=== PATIENT | female | born 1990 | race Caucasian/White ===

== ENCOUNTER 2016-09-06 11:14 | Inpatient (IN) | payer MEDICAID ==
[~2016-09-06] VITALS: Ht 152.4 cm; Wt 72.9 kg
[2016-09-06 12:34] VITALS: BP 122/70; RESP 16; Ht 152.4 cm; Wt 72.9 kg
[2016-09-06] MEDS ORDERED: PREN1TAB17 PO (12:36)
[2016-09-06] MEDS ORDERED: IRON1TAB78 PO (12:36)
[2016-09-06] MEDS ORDERED: METHYLERGONOVINE 0.2 MG INJ IM PRN ×2 (13:00→23:30)
[2016-09-06] MEDS ORDERED: MISOPROSTOL 200 MCG TAB PR PRN ×2 (13:00→23:30)
[2016-09-06] MEDS ORDERED: MINERAL OIL LIGHT 10 ML VIAL TOP ONE (13:00)
[2016-09-06] MEDS ORDERED: OXYTOCIN 30 UNITS/LR 500 ML IV SCH ×3 (13:00)
[2016-09-06] MEDS ORDERED: CARBOPROST 250 MCG INJ IM PRN ×2 (13:00→23:30)
[2016-09-06] MEDS ORDERED: LIDOCAINE 1% (MPF) 30 ML INJ INJ PRN (13:00)
[2016-09-06] MEDS ORDERED: OXYTOCIN 30 UNITS/LR 500 ML IV PRN ×2 (13:00→23:30)
[2016-09-06] MEDS ORDERED: BUTORPHANOL 2 MG INJ IV PRN (13:00)
[2016-09-06] MEDS: LACTATED RINGER'S 1,000 ML IV SCH ×2 (13:12→18:22)
[2016-09-06 13:22] LABS: ADD SCAN DIFF NO
[2016-09-06 13:29] LABS: BASOPHILS % 0.2 % (0.0-2.0); EOSINOPHILS % 0.3 % (0.0-7.0); HEMATOCRIT 36.3 % (37.0-47.0); HEMOGLOBIN 12.7 g/dl (12.0-16.0); LYMPHOCYTES # 1.5 10^3/ul (0.8-2.9); LYMPHOCYTES % 12.1 % (15.0-51.0); MEAN CORPUSCULAR VOLUME 97.3 fl (82.0-101.0); MEAN PLATELET VOLUME 11.1 fl (7.4-10.4); MONOCYTE # 0.8 10^3/ul (0.3-0.9); MONOCYTES % 6.5 % (0.0-11.0); NEUTROPHIL # 9.8 10^3/ul (1.6-7.5); NEUTROPHILS % 79.8 % (39.0-77.0); PLATELET COUNT 232 10^3/UL (140-415); RED BLOOD COUNT 3.73 10^6/ul (4.20-5.40); RED CELL DISTRIBUTION WIDTH 13.5 % (11.5-14.5); WHITE BLOOD COUNT 12.3 10^3/ul (4.8-10.8)
[2016-09-06 13:39] LABS: INR 0.84; PROTIME 11.5 Sec (12.2-14.2); PT RATIO 0.9
[2016-09-06 13:40] LABS: PARTIAL THROMBOPLASTIN TIME 27.1 Sec (25.0-35.0)
[2016-09-06] MEDS ORDERED: LACTATED RINGER'S 1,000 ML IV PRN (17:00)
[2016-09-06] MEDS ORDERED: ONDANSETRON 4 MG INJ ONE (18:03)
[2016-09-06] MEDS ORDERED: FENTAnyl 2MCG/ML-ROPIV 0.2% 100 ML ONE (18:08)
[2016-09-06] MEDS ORDERED: CITRIC ACID/SODIUM CITRATE 15 ML CUP ONE (18:10)
[2016-09-06] MEDS ORDERED: ONDANSETRON 4 MG INJ IV ONE (18:30)
[2016-09-06] MEDS ORDERED: CITRIC ACID/SODIUM CITRATE 15 ML CUP PO ONE (18:30)
[2016-09-06] MEDS ORDERED: DIPHENHYDRAMINE 50 MG INJ IV PRN (18:30)
[2016-09-06] MEDS ORDERED: PROCHLORPERAZINE 10 MG INJ IV PRN (18:30)
[2016-09-06] MEDS ORDERED: FENTAnyl 2MCG/ML-ROPIV 0.2% 100 ML BAG EPI SCH (18:30)
[2016-09-06] MEDS ORDERED: morphine 2 MG INJ IV PRN ×2 (18:30)
[2016-09-06] MEDS ORDERED: KETOROLAC 30 MG INJ IV PRN (18:30)
[2016-09-06] MEDS ORDERED: ONDANSETRON 4 MG INJ IV PRN (18:30)
[2016-09-06] MEDS ORDERED: NALOXONE (0.4 MG/ML) INJ IV PRN (18:30)
--- NOTE | 2016-09-06 21:08 | HP ---
Date/Time of Note Date/Time of Note DATE: 09/06/16 TIME: 20:57 OB - History Hx of Present Free Text/Dictation 26 y.o at 39w2d for induction of labor for oligohydramnios. GBS neg VE 2cm 70% -3 at 1249 09/06/16 admitted for augmentation ( induction) Chief Complaint: induction of labor for low ZEB Estimated Due Date: Sep 11, 2016 : 2 Para: 1 Spontaneous : 0 Therapeutic : 0 Care: Good Care Ultrasounds: Normal mid trimester US Obstetrical Complications: None, Other (oligohydramnios) Medical Complications: None Past Family/Social History * Past Medical, Surgical, Family and Obstetric Histories reviewed from chart. Blood Type: O+ Rubella: immune RPR/VDRL: Negative GBS Status: Negative HBsAG: Negative OB Admission Exam Vital Signs Vital Signs Vital Signs Date Time Temp Pulse Resp B/P Pulse Ox O2 Delivery O2 Flow Rate FiO2 09/06/16 12:34 99.2 16 122/70 Room Air Physical Exam HEENT: WNL Heart: Rhythm Normal Lungs: Clear, Equal Abdomen: WNL Extremities: Normal Reflexes: Normal Cervical Dilatation: 2cm Effacement: Other (70%) Station: -3 Membranes: Intact Amniotic Fluid: Unevaluable Heart Rate: 130's Accelerations: Accelerations Present Decelerations: No Decelerations Varibility: Moderate Contractions on Admission: < 5 Minutes Apart Intensity: Mild Last 72 hours Lab Results CBC & BMP 09/06/16 12:57 OB Assessment/Plan Reason for admission: induction of labor, other (oligohydramnios) Plan: Induction YING HAWKINS MD September 06, 2016 21:08
--- NOTE | 2016-09-06 21:13 | LDN ---
Date/Time of Note Date/Time of Note DATE: 09/06/16 TIME: 21:10 Delivery Summary normal vaginal delivery Weeks of Gestation 39w2d Placenta Delivered: Spontaneously Meconium: Light Episiotomy: No Perineal laceration: 0 Anesthesia type: Epidural Sponge & Needle done & correct: Yes All needle counts correct: Yes Any foreign bodies felt in the: No Problems: Delivery Information Sex Infant Sex: female Apgars 1 Minute: 8 5 Minute: 9 10 Minute: 9 Suctioning Nose & mouth suctioned at lilo: Yes Delee suction performed: No Umbilical Cord Umbilical cord with: 3 Vessels Cord presentations: no nuchal cord Cord Blood was obtained: Yes Mother & Baby Disposition Disposition Mom & Baby to Maternity; Good: Yes Mom transferred to: Other () Baby to NICU: No YING HAWKINS MD September 06, 2016 21:13
[2016-09-06 22:45] VITALS: BP 110/65; PULSE 64; RESP 18
[2016-09-06] MEDS ORDERED: BENZOCAINE 20% 56 ML SPRAY TOP PRN (23:30)
[2016-09-06] MEDS ORDERED: LANOLIN 7 GM TUBE TOP PRN (23:30)
[2016-09-06] MEDS ORDERED: ZOLPIDEM 5 MG TAB PO PRN (23:30)
[2016-09-06] MEDS ORDERED: WITCH HAZEL/GLYCERIN PAD PR PRN (23:30)
[2016-09-06] MEDS ORDERED: OXYCODONE/ASPIRIN (4.88/325) TAB PO PRN ×2 (23:30)
[2016-09-06] MEDS: IBUPROFEN 600 MG TAB PO SCH (23:52)
[2016-09-07] MEDS: LACTATED RINGER'S 1,000 ML IV SCH ×3 (01:34→13:39)
[2016-09-07 04:00] VITALS: BP 100/55; PULSE 62; RESP 19
[2016-09-07] MEDS: IBUPROFEN 600 MG TAB PO SCH ×4 (05:52→23:53)
[2016-09-07 07:32] LABS: ADD SCAN DIFF NO
[2016-09-07 07:47] LABS: BASOPHILS % 0.3 % (0.0-2.0); EOSINOPHILS # 0.1 10^3/ul (0.0-0.5); EOSINOPHILS % 0.9 % (0.0-7.0); HEMATOCRIT 34.3 % (37.0-47.0); HEMOGLOBIN 11.9 g/dl (12.0-16.0); LYMPHOCYTES % 15.6 % (15.0-51.0); MEAN CORPUSCULAR HEMOGLOBIN 34.2 pg (29.0-33.0); MEAN CORPUSCULAR HGB CONC 34.7 g/dl (32.0-37.0); MEAN CORPUSCULAR VOLUME 98.6 fl (82.0-101.0); MEAN PLATELET VOLUME 11.3 fl (7.4-10.4); MONOCYTE # 0.9 10^3/ul (0.3-0.9); MONOCYTES % 6.7 % (0.0-11.0); NEUTROPHIL # 9.7 10^3/ul (1.6-7.5); NEUTROPHILS % 75.6 % (39.0-77.0); PLATELET COUNT 207 10^3/UL (140-415); RED BLOOD COUNT 3.48 10^6/ul (4.20-5.40); RED CELL DISTRIBUTION WIDTH 13.2 % (11.5-14.5); WHITE BLOOD COUNT 12.8 10^3/ul (4.8-10.8)
[2016-09-07 08:40] VITALS: BP 102/61; PULSE 56; RESP 18
[2016-09-07] MEDS: SENNA/DOCUSATE NA (8.6MG/50MG) TAB PO SCH ×2 (08:50→20:41)
[2016-09-07 12:30] VITALS: BP 98/51; PULSE 64; RESP 18
[2016-09-07 16:27] VITALS: BP 103/52; PULSE 62; RESP 17
--- NOTE | 2016-09-07 18:28 | DS ---
Date/Time of Note Date/Time of Note home next day DATE: 09/07/16 TIME: 18:26 Obstetrical Discharge Record Final Diagnosis Final Diagnosis: Term delivered Other Final Diagnosis S/P vaginal delivery Vaginal Delivery Obstetrical Delivery: Spontaneous Complications Augmentation: Yes Condition on Discharge Physical Assessment Last Vitals: see nurses notes Voiding: Yes Bowel Movement: Yes Breast: Soft, non-tender, Filling Fundus: Firm Abdomen and Incision: soft BS + Episiotomy: NA Calf Tenderness: No Patient Condition: Good JESÚS LY MD September 07, 2016 18:28
--- NOTE | 2016-09-07 18:29 | PD.PPDC ---
[employer] Discharge Instruction Provider Information Physician Information 26 y/o female had vaginal delivery Diagnosis Final Diagnosis: S/P vaginal delivery Condition Patient Condition: Good Activity/Restrictions Activity: Normal Activity May Shower Restrictions: Nothing in the Vagina Return to Work or School: Oct 24, 2016 Follow-up Follow-up with Physician: 4, Week/Weeks (in clinic) Return to clinic for OB Instructions: Breast Tenderness Depression JESÚS LY MD September 07, 2016 18:29
[2016-09-07] MEDS ORDERED: IBUP-1542 PO (18:31)
[2016-09-07 19:30] VITALS: BP 104/66; PULSE 61; RESP 18
--- NOTE | 2016-09-07 23:08 | NSTRPT ---
NST Information Datetime Report Generated by CPN: 09/07/2016 23:08 Datetime: 09/06/2016 09:45 NST Information EGA: 39.2 Test Number: 7 Time on Monitor: 09/06/2016 10:06 Time off Monitor: 09/06/2016 10:06 NST Duration (Min): 0 Reason for NST: Other Reason for NST Other: Abnormal 2nd Trimester Screen Test and Monitor Explained: Monitor Explained; Test Explained; Verbalized Understanding Pulse: 71 Resp: 16 SBP: 105 DBP: 63 Test Evaluation NST Interventions: Reposition Patient Patient States Movement: Absent Contraction Frequency: x2, mild FHR Baseline : 135 Variability: Moderate 6-25bpm Accelerations: 15X15 Decelerations: None FHR Category: Category I NST Results: Reactive Provider Notified: Dr. Castorena Comments: To u/s, ZEB 6.3cm, cephalic 1030-Report to Dr Castorena (covering for Dr Oquendo). Order received to admit to L_D for induction. POC explained to pt, states understanding and denies further questions at this time. Report called t o Merly, RN in L_D. 1035-Pt to L_D, states is going to move her car first, instructed to not go home or anywhere else, needs to go directly to hospital, states understanding and complaince. Electronically Signed By E-Signature: with User ID: [id number] Datetime: 09/01/2016 09:26 NST Information EGA: 38.4 NST Duration (Min): 23 Datetime: 08/29/2016 09:35 NST Information EGA: 38.1 NST Duration (Min): 38 Datetime: 08/25/2016 09:34 NST Information EGA: 37.4 NST Duration (Min): 30 Datetime: 08/22/2016 09:33 NST Information EGA: 37.1 NST Duration (Min): 24 Datetime: 08/18/2016 09:26 NST Information EGA: 36.4 NST Duration (Min): 22 Datetime: 08/11/2016 08:51 NST Information EGA: 35.4 NST Duration (Min): 36
[2016-09-08 03:30] VITALS: BP 98/64; PULSE 64; RESP 18
[2016-09-08] MEDS: IBUPROFEN 600 MG TAB PO SCH ×2 (06:20→12:06)
[2016-09-08 08:00] VITALS: BP 99/61; PULSE 57; RESP 18
[2016-09-08] MEDS ORDERED: DIPHTH/TET/ACEL PERTUSS (ADULT) 0.5 ML VIAL IM* ONE (09:00)
[2016-09-08] MEDS: SENNA/DOCUSATE NA (8.6MG/50MG) TAB PO SCH (09:23)
== END 2016-09-08 15:22 | disposition home or self-care (01) | DRG 775 ==
LOC: UNDOADMIN 11:14 → L-D 11:14 → PP1 22:51 → EDSTATUS 09-11 11:04
PROVIDERS: ADMIT Obstetrics & Gynecology; ATTEND Obstetrics & Gynecology
PROC: 10E0XZZ Delivery of Products of Conception, External Approach (ICD-10-PCS; principal; 2016-09-06)
PROC: 3E00X4Z Introduction of Serum, Toxoid and Vaccine into Skin and Mucous Membranes, External Approach (ICD-10-PCS; 2016-09-08)
DX: O80 Encounter for full-term uncomplicated delivery (principal); Z23 Encounter for immunization; Z3A.39 39 weeks gestation of pregnancy; Z37.0 Single live birth
CPT/HCPCS: 62319; 85025; 85610; 85730; 86592; 86900; 86901; 87340; 90715; J2405; J2590; J3010; J7120